=== PATIENT | male | born 1935 | race Caucasian/White ===

== ENCOUNTER 2016-10-27 12:52 | Emergency (ER) | payer OTHER ==
[~2016-10-27] VITALS: Ht 175.3 cm; Wt 58.2 kg
[~2016-10-27 12:52] MED LIST: ADVAIR 250/501 DISK IH; APLISOL5 TUB UNIT ID; APRESOLINE100 MG PO; APRESOLINE25 MG PO; ASPIR-LOW81 MG PO; AZITHROMYCIN250 MG PO; AZITHROMYCIN250 MG1 PO; Albuterol 0.5% Inhal IH; Apresoline PO; Aspirin E.C. PO; CALCITRIOL0.25 MCG PO; CALCIUM ACETAT667 MG PO; CARDIZEM CD120 MG PO; CARDIZEM120 MG PO; CARVEDILOL12.5 MG PO; CARVEDILOL25 MG PO; CARVEDILOL6.25 MG PO; CLONIDINE HCL0.1 MG PO; CLONIDINE1 EAC2 TD; CLONIDINE1 EACH TD; COREG12.5 M1 PO; CRESTOR40 MG PO; Calcium Citrate 600/ PO; Colace PO; Coreg PO; DIGITEK125 MC2 PO; DIGOX125 MCG PO; DIGOXIN125 MCG PO; DOCUSATE SODIU100 MG PO; DULCOLAX10 MG PR; DUONEB 2.5-0.5 M3 ML AEROSOL; ENDOCET 5-3251 EACH PO; FAMOTIDINE20 MG PO; FLEET ENEMA EX230 ML PR; FLOVENT 11120 INHALA IH; FUROSEMIDE40 MG PO; HYDRALAZINE HC100 MG PO; HYDRALAZINE HCL25 MG PO; Habitrol,Nicoderm CQ TD; LEVOFLOXACIN250 MG PO; LO-DOSE ASPIRIN81 M2 PO; LORAZEPAM0.5 MG PO; Levothroid,Synthroid PO; Lexapro PO; MILK OF MAGN PO; MIRALAX255 GM PO; NABI650T PO; NIFEDIPINE ER30 MG PO; NIFEDIPINE ER90 MG PO; PLAVIX75 MG PO; POLYETHYLENE GL17 GM PO; PREDNISONE10 MG PO; PREDNISONE20 MG PO; PROSTATE 2.4 C1 EACH PO; Procardia XL,Adalat PO; Protonix PO; RANITIDINE HCL150 M1 PO; RANITIDINE HCL150 MG PO; RENVELA800 MG PO; SENNA8.6 MG PO; SPIRIVA RESPIMAT4 GM IH; Sodium Bicarbonate PO; TRAZODONE HCL50 MG PO; TYLENOL REGULA325 MG PO; Theragran PO; UNKNOWN MEDS; VENTOLIN HFA18 GM IH; VITAMIN D-32000 UNI2 PO; ZOSYN 3.3753.375 GM IV; predniSONE PO
[2016-10-27 14:48] VITALS: BP 126/46
== END 2016-10-27 16:37 ==
LOC: EME 12:52
DX: T82.898A Other specified complication of vascular prosthetic devices, implants and grafts, initial encounter (principal); R41.0 Disorientation, unspecified; N18.6 End stage renal disease; E78.5 Hyperlipidemia, unspecified; I10 Essential (primary) hypertension; Z99.2 Dependence on renal dialysis
CPT/HCPCS: 99281; 99284